=== PATIENT | male | born 1985 | race Caucasian/White ===

== ENCOUNTER 2017-09-06 01:55 | Emergency (ER) | payer OTHER ==
[2017-09-06 02:08] VITALS: BP 143/93; PULSE 129; RESP 18; TEMP 98; O2SAT 98
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
== END 2017-09-06 03:56 | disposition home or self-care (01) ==
LOC: H.ER 01:55
DX: S02.2XXA Fracture of nasal bones, initial encounter for closed fracture (principal); Y09 Assault by unspecified means